=== PATIENT | male | born 1970 | race Two or more races ===

== ENCOUNTER 2021-04-19 10:30 | Inpatient (IN) | payer OTHER ==
[~2021-04-19] VITALS: Ht 172.7 cm; Wt 96.6 kg
[2021-04-19] MEDS ORDERED: TOPROL XL100 M1 PO (13:32)
[2021-04-19] MEDS ORDERED: ZESTRIL40 M1 PO (13:32)
[2021-04-19] MEDS ORDERED: DRAMAMINE LESS25 MG PO (13:33)
[2021-04-19] MEDS ORDERED: MULTI VITAMIN1 EACH PO (13:33)
[2021-04-24] MEDS ORDERED: SIMVASTATIN20 MG (13:03)
== END 2021-04-26 11:55 | disposition home or self-care (01) | DRG 330 ==
LOC: SURG 04-24 06:20 → O/R 04-24 06:20 → SURH 04-24 10:30 → SURG 04-24 15:30 → SURH 04-24 19:00 → SURG 04-26 11:55
PROVIDERS: ADMIT Colon & Rectal Surgery; ATTEND Colon & Rectal Surgery
PROC: 0DTN4ZZ Resection of Sigmoid Colon, Percutaneous Endoscopic Approach (ICD-10-PCS; 2021-04-24)
PROC: 3E0F7SF Introduction of Other Gas into Respiratory Tract, Via Natural or Artificial Opening (ICD-10-PCS; 2021-04-24)
PROC: 0DTP4ZZ Resection of Rectum, Percutaneous Endoscopic Approach (ICD-10-PCS; principal; 2021-04-24 19:00)
DX: K57.20 Diverticulitis of large intestine with perforation and abscess without bleeding (principal); K92.1 Melena